=== PATIENT | male | born 1995 | race African-American/Black ===

== ENCOUNTER 2020-06-05 11:14 | Emergency (ER) | payer MEDICAID ==
[~2020-06-05] VITALS: Ht 180.3 cm; Wt 90.9 kg
[2020-06-05] MEDS ORDERED: PROPARACAINE HCL 0.5% 15 ML OPHTHALMIC SOLUTION OU ONE (12:45)
[2020-06-05] MEDS ORDERED: FLUORESCEIN SODIUM 1 MG STRIP OU ONE (12:45)
[2020-06-05] MEDS ORDERED: OFLOXACIN 0.3% 5 ML OPHTHALMIC SOLUTION OU ONE (14:00)
[2020-06-05 14:28] VITALS: BP 131/87
[2020-06-05] MEDS ORDERED: IBUPROFEN 600 MG TABLET PO ONE (14:30)
== END 2020-06-05 14:56 | disposition home or self-care (01) ==
LOC: EMS 13:53
DX: S05.02XA Injury of conjunctiva and corneal abrasion without foreign body, left eye, initial encounter (principal); S05.01XA Injury of conjunctiva and corneal abrasion without foreign body, right eye, initial encounter; X58.XXXA Exposure to other specified factors, initial encounter; Y93.89 Activity, other specified; Y92.89 Other specified places as the place of occurrence of the external cause; Y99.8 Other external cause status
CPT/HCPCS: Z7502; Z7610